=== PATIENT | female | born 2000 ===

== ENCOUNTER 2024-11-28 04:38 | Inpatient (IN) | payer OTHER ==
[2024-11-28] VITALS (32 sets, daily range): BP systolic 95–163; BP diastolic 54–77
[~2024-11-28] VITALS: Ht 165.1 cm; Wt 78.2 kg
[2024-11-28] MEDS ORDERED: FentaNYL Citrate 50 MCG/ML 2 ML Injection IV PRN (05:10)
[2024-11-28] MEDS ORDERED: Methylergonovine Maleate 0.2MG / ML 1ML Amp IM PRN ×2 (05:15→19:00)
[2024-11-28] MEDS ORDERED: Ondansetron HCl 2 MG / ML 2ML Vial IV PRN (05:15)
[2024-11-28] MEDS ORDERED: Carboprost Tromethamine 250 MCG/ML 1ML Amp IM PRN ×2 (05:15→19:05)
[2024-11-28] MEDS ORDERED: ePHEDrine Sulfate 50 MG/ML 1ML Injection XX PRN (05:15)
[2024-11-28] MEDS ORDERED: FentaNYL 2mcg/ml-Bup 0.1% Epd 250 ML EPI PRN (05:15)
[2024-11-28] MEDS ORDERED: Tranexamic Acid 100 ML IV PRN (05:15)
[2024-11-28] MEDS ORDERED: OXYTOCIN/RINGER'S LACTATE 500 ML IV PRN (05:15)
[2024-11-28] MEDS ORDERED: Oxytocin 10 Unit / ML Vial IM PRN (05:15)
[2024-11-28] MEDS ORDERED: PRENATAL TABLE1 EAC2 PO (05:47)
[2024-11-28 05:55] LABS: BASOPHILS ABSOLUTE AUTO 0.03 K/mm3 (0.00-0.23); BASOPHILS PERCENT AUTO 0 % (0-2); EOSINOPHILS ABSOLUTE AUTO 0.04 K/mm3 (0.00-0.68); EOSINOPHILS PERCENT AUTO 0 % (0-6); Hematocrit 37.0 % (33.0-51.0); Hemoglobin 12.7 g/dL (11.5-16.0); IMMATURE GRAN ABSOLUTE AUTO 0.11 K/mm3 (0.00-0.10); IMMATURE GRAN PERCENT AUTO 1 % (0-1); LYMPHOCYTES ABSOLUTE AUTO 1.84 K/mm3 (0.84-5.20); LYMPHOCYTES PERCENT AUTO 14 % (21-46); MONOCYTES ABSOLUTE AUTO 0.84 K/mm3 (0.16-1.47); MONOCYTES PERCENT AUTO 7 % (4-13); Mean Corpuscular HGB Conc 34.3 g/dL (31.5-36.5); Mean Corpuscular Volume 88 fL (80-100); NEUTROPHILS ABSOLUTE AUTO 9.94 K/mm3 (1.96-9.15); NEUTROPHILS PERCENT AUTO 78 % (41-73); NRBC ABSOLUTE 0.00 K/mm3 (0.00-0.02); NRBC Auto 0.0 /100 WBC (0.0-0.2); Platelet Count 255 K/mm3 (150-400); RDW Coefficient Variation 12.7 % (11.7-14.2); RDW Standard Deviation 40.6 fL (35.1-46.3)
[2024-11-28] MEDS ORDERED: FentaNYL Citrate 50 MCG/ML 2 ML Injection ONE (09:53)
[2024-11-28] MEDS ORDERED: Ketorolac Tromethamine 30mg Vial IV PRN (19:00)
[2024-11-28] MEDS ORDERED: Witch Hazel/Glycerin PADS TOP PRN (19:00)
[2024-11-28] MEDS ORDERED: Benzocaine Topical Anesthetic Spray 60GM TOP PRN (19:05)
[2024-11-28] MEDS ORDERED: FLU VACC TS2025-26(6MOS UP)/PF 45 MCG/0.5 ML SYRINGE IM SCH (19:05)
[2024-11-28] MEDS ORDERED: OXYTOCIN/RINGER'S LACTATE 500 ML IV SCH (19:05)
[2024-11-29 00:50] VITALS: BP 97/50
[2024-11-29 05:00] VITALS: BP 102/65
[2024-11-29] MEDS ORDERED: Prenatal Vit/FE Fumarate/FA 1 Tab PO SCH (09:00)
[2024-11-29] MEDS ORDERED: Polyethylene Glycol 3350 17 gm PO SCH (09:00)
[2024-11-29 09:19] VITALS: BP 116/56
[2024-11-29 19:58] VITALS: BP 122/77
== END 2024-11-29 20:20 | disposition home or self-care (01) | DRG 807 ==
LOC: OBS 04:38 → BC 04:42 → OBS 05:10 → BC 05:13
PROVIDERS: ADMIT Obstetrics & Gynecology
PROC: 10E0XZZ Delivery of Products of Conception, External Approach (ICD-10-PCS; principal; 2024-11-29)
PROC: 0KQM0ZZ Repair Perineum Muscle, Open Approach (ICD-10-PCS; 2024-11-29)
PROC: 3E0R3BZ Introduction of Anesthetic Agent into Spinal Canal, Percutaneous Approach (ICD-10-PCS; 2024-11-29)
PROC: 00HU33Z Insertion of Infusion Device into Spinal Canal, Percutaneous Approach (ICD-10-PCS; 2024-11-29)
DX: O36.8330 Maternal care for abnormalities of the fetal heart rate or rhythm, third trimester, not applicable or unspecified (principal); Z37.0 Single live birth; O70.1 Second degree perineal laceration during delivery; Z3A.39 39 weeks gestation of pregnancy
CPT/HCPCS: 36415; 51702; 85025; 86850; 86900; 86901; 99214; A9270; J1885; J7120